=== PATIENT | female | born 1980 | race Two or more races ===

== ENCOUNTER 2017-12-30 13:41 | Emergency (ER) | payer MEDICAID ==
[~2017-12-30] VITALS: Ht 162.6 cm; Wt 55.3 kg
--- NOTE | 2017-12-30 14:20 | NUR ---
PT PRESENTED TO THE ER WITH A C/O INTERMITTENT PALPATATIONS AND CHEST PRESSURE. PT IS ON THE MONITOR AND CONITNUOUS PULSE OX.
[2017-12-30] MEDS ORDERED: IV NS 0.9% 500 ML BAG IV ONE (14:30)
--- NOTE | 2017-12-30 14:30 | NUR ---
DR. PRO IS AT THE BEDSIDE EVALUATING THE PT.
--- NOTE | 2017-12-30 14:30 | NUR ---
EKG DONE AT THE BEDSIDE.
[2017-12-30 14:32] LABS: BASOPHILS % (AUTO) 0.5 % (0.0-2.0); EOSINOPHILS # (AUTO) 0.1 /CMM (0.0-0.7); EOSINOPHILS % (AUTO) 0.8 % (0.0-6.0); HEMATOCRIT 36 % (33-45); HEMOGLOBIN 12.5 g/dL (11.5-14.8); LYMPHOCYTES # (AUTO) 2.3 /CMM (0.8-4.8); LYMPHOCYTES % (AUTO) 34.3 % (20.0-44.0); MEAN CORPUSCULAR HEMOGLOBIN 30 PG (26.0-33.0); MEAN CORPUSCULAR HGB CONC 35 g/dl (31.0-36.0); MEAN CORPUSCULAR VOLUME 85 fL (82-100); MONOCYTES # (AUTO) 0.5 /CMM (0.1-1.30); MONOCYTES % (AUTO) 6.8 % (2.0-12.0); NEUTROPHILS # (AUTO) 3.9 /CMM (1.8-8.9); NEUTROPHILS % (AUTO) 57.6 % (43.0-81.0); PLATELET COUNT (AUTO) 292 /CMM (150-450); RDW COEFFICIENT OF VARIATION 12.8 (11.5-15.0); WHITE BLOOD COUNT (AUTO) 6.8 K/uL (4.3-11.0)
--- NOTE | 2017-12-30 14:36 | NUR ---
ALL ORDERS CANCELLED PER DR. PRO.
--- NOTE | 2017-12-30 14:38 | NUR ---
PT HAS DX OF ARRHYTHMIA AND PT IS GOING TO [facility] [[email or web address]] TODAY, PER DR. PRO.
[2017-12-30 14:44] LABS: CARBON DIOXIDE 26 mmol/L (21-32); CHLORIDE 105 mmol/L (98-107); CREATININE 0.5 mg/dL (0.6-1.3); GLUCOSE 92 mg/dL (74-106); SODIUM SERUM 137 mmol/L (136-145); UREA NITROGEN, BLOOD 10 mg/dL (7-18)
[2017-12-30 14:49] VITALS: BP 113/85
[2017-12-30 14:53] LABS: TROPONIN I < 0.017 ng/mL (0.00-0.056)
== END 2017-12-30 14:53 | disposition home or self-care (01) ==
LOC: ER 13:43
DX: I49.9 Cardiac arrhythmia, unspecified (principal); R00.2 Palpitations; G89.29 Other chronic pain
CPT/HCPCS: 36415; 80048; 84484; 85025; 99284; A4606; Z7610